=== PATIENT | male | born 1960 | race Hispanic/Latino ===

== ENCOUNTER 2025-05-06 18:22 | Observation (INO) | payer SELFPAY ==
[~2025-05-06] VITALS: Ht 177.8 cm; Wt 77.1 kg
[2025-05-06 19:20] VITALS: TEMP 97.8
[2025-05-06 19:56] LABS: BASOPHILS % 0.3 % (0.0-1.0); EOSINOPHILS % 0.1 % (0.0-6.0); LYMPHOCYTES % 6.2 % (18.0-39.1); MONOCYTES % 3.0 % (4.4-11.3); NEUTROPHILS % 89.6 % (38.7-80.0); RED CELL DISTRIBUTION WIDTH 12.3 % (11.7-14.4)
[2025-05-06] MEDS ORDERED: SODIUM CHLORIDE FLUSH 10 ML SYR IV PRN (20:00)
[2025-05-06 20:09] LABS: EST GLOMERULAR FILTRATION RATE 97.0 ML/MIN (>=60)
[2025-05-06 20:09] LABS: LEUKOCYTE ESTERASE ,URINE NEGATIVE (NEGATIVE); PROTEIN,URINE DIPSTICK NEGATIVE (NEGATIVE)
[2025-05-06 20:10] LABS: URINE UROBILINOGEN 0.2 mg/dL (0.2 - 1)
[2025-05-06 20:21] LABS: EPITHELIAL CELLS,URINE FEW /LPF
[2025-05-06] MEDS ORDERED: IOPAMIDOL 370 MG/ML 100 ML INFUS..BTL INJ ONE (20:49)
[2025-05-06] MEDS: ONDANSETRON HCL INJ 2MG/ML 2ML 2 MG/ML VIAL IV STA (20:54)
[2025-05-06] MEDS: MECLIZINE HCL 12.5 MG TAB PO ONE (20:55)
[2025-05-06 22:21] VITALS: PULSE 67; RESP 13
[2025-05-06] MEDS ORDERED: SODIUM CHLORIDE FLUSH 10 ML SYR INJ PRN (23:00)
[2025-05-06] MEDS ORDERED: MECLIZINE HCL 12.5 MG TAB PO PRN (23:00)
[2025-05-06] MEDS ORDERED: ONDANSETRON HCL INJ 2MG/ML 2ML 2 MG/ML VIAL IV PRN (23:00)
[2025-05-07] VITALS (9 sets, daily range): BP systolic 101–133; BP diastolic 65–90; PULSE 63–75; RESP 16–20; TEMP 97.3–98.9; O2SAT 95–98
[2025-05-07] MEDS: ASPIRIN 81 MG CHEW TAB PO ONE (01:01)
[2025-05-07 06:08] LABS: BASOPHILS % 0.7 % (0.0-1.0); EOSINOPHILS % 2.4 % (0.0-6.0); LYMPHOCYTES % 23.0 % (18.0-39.1); MONOCYTES % 8.3 % (4.4-11.3); NEUTROPHILS % 65.3 % (38.7-80.0); RED CELL DISTRIBUTION WIDTH 12.3 % (11.7-14.4)
[2025-05-07 06:34] LABS: EST GLOMERULAR FILTRATION RATE 88.0 ML/MIN (>=60)
[2025-05-07] MEDS: ASPIRIN 81 MG ENTERIC COATED PO SCH (09:44)
[2025-05-07 12:26] LABS: CHOL/HDL RATIO 2.7 (3.9-4.7); LDL CHOLESTEROL 88.0 MG/DL (60-130)
[2025-05-07] MEDS: CLOPIDOGREL BISULFATE 75 MG TAB PO ONE (17:13)
[2025-05-07] MEDS ORDERED: IOPAMIDOL 370 MG/ML 100 ML INFUS..BTL INJ ONE (22:58)
[2025-05-08] VITALS: BP 110/79; PULSE 64; RESP 20; TEMP 98.6; O2SAT 95
[2025-05-08 04:00] VITALS: BP 113/74; PULSE 64; RESP 20; TEMP 97.9; O2SAT 93
[2025-05-08 08:30] VITALS: BP 129/85; PULSE 83; RESP 19; TEMP 97.5; O2SAT 95
[2025-05-08 08:34] VITALS: BP 129/85; PULSE 83; RESP 19; TEMP 97.5; O2SAT 95
[2025-05-08] MEDS: CLOPIDOGREL BISULFATE 75 MG TAB PO SCH (08:54)
[2025-05-08] MEDS: METOPROLOL SUCCINATE 25 MG TAB XL PO SCH (08:55)
[2025-05-08 12:04] VITALS: BP 142/97; PULSE 78; RESP 19; TEMP 98.4; O2SAT 97
[2025-05-08] MEDS ORDERED: TOPROL XL25 MG PO (12:50)
[2025-05-08] MEDS ORDERED: ASPIRIN EC81 MG PO (12:50)
[2025-05-08] MEDS ORDERED: PLAVIX75 MG PO (12:50)
== END 2025-05-08 14:40 | disposition home or self-care (01) ==
LOC: ER 19:56 → ERHOLD 22:59 → MED/SURG2 23:41
PROVIDERS: ADMIT Internal Medicine; ATTEND Internal Medicine
DX: I63.212 Cerebral infarction due to unspecified occlusion or stenosis of left vertebral artery (principal); R11.10 Vomiting, unspecified; E78.5 Hyperlipidemia, unspecified; I35.1 Nonrheumatic aortic (valve) insufficiency; I77.819 Aortic ectasia, unspecified site; Z87.891 Personal history of nicotine dependence
CPT/HCPCS: 36415 ×2; 70496; 70498; 70551; 71045; 71275; 80053 ×2; 80061; 81001; 82550 ×2; 82948; 83036; 84484 ×2; 85025 ×2; 93005; 93306; 97116; 97161; 99284; G0378 ×3; J2405; J8597; Q9967 ×2